=== PATIENT | male | born 1975 | race Caucasian/White ===

== ENCOUNTER → 2016-07-04 | Outpatient (CLI) | payer OTHER ==
[2016-07-04 13:19] LABS: BLOOD UREA NITROGEN 10 MG/DL (7-18); CREATININE FOR GFR 1.16 MG/DL (0.70-1.30); GLOMERULAR FILTRATION RATE > 60.0 (>60)
== END | disposition home or self-care (01) ==
LOC: M LAB 11:18
PROVIDERS: ATTEND Internal Medicine Gastroenterology
DX: R10.33 Periumbilical pain (principal)

== ENCOUNTER → 2016-07-05 | Outpatient (CLI) | payer OTHER ==
[~2016-07-05] MED LIST: GASTROGRAFIN SOLUTION 30ML (Q9963) As Ordered ONE; ISOVUE-370 76% 100ML VIAL (Q9967) As Ordered ONE
--- NOTE | 2016-07-05 11:28 | REP ---
CT abdomen pelvis with IV and oral contrast 07/05/2016 Indication right upper quadrant epigastric pain Comparison to liver ultrasound 09/04/2015 performed at [facility] Technique: After drinking two cups of oral contrast, each containing 10 ml gastrographin in 290 ml water, 3 mm spiral axial images were performed through the abdomen. Following IV contrast administration of 100 mL Isovue 370 mg/ml , 3 mm spiral axial sections performed through abdomen and pelvis. Findings: Lung bases are clear bilaterally. There is mild diffuse fatty infiltration of liver with a small amount of fatty sparing within the left lobe of liver and adjacent to gallbladder fossa. Spleen, pancreas are unremarkable. Tiny sludge ball versus noncalcified stone is suggested in the gallbladder neck. Adrenal glands kidneys are unremarkable. There is no hydronephrosis or obstructing ureteral calculi bilaterally. Stomach is unremarkable. There are moderate to slightly thickened jejunal loops, likely contributed to by spasm/ under distension. The small bowel is without obstruction. The appendix is normal. Abdominal aorta is of normal course and caliber Bladder is normal prostate is not enlarged. There are few scattered colonic diverticula and moderate retained colonic stool. 9 mm umbilical hernia seen containing tiny amount of omental fat only There has been previous posterior fusion of L 5 and S1 with bilateral posterior pedicular screws and vertical stabilization rods at L5 and S1. There is no visualized spondylolisthesis. Disc cage also noted at L5 -S1. There is no free air or ascites. Impression: Mild diffuse fatty infiltration of liver. Small areas of focal fatty sparing noted adjacent to gallbladder fossa. Tiny sludge ball versus noncalcified stones suggested in the gallbladder neck of 6.5 mm diameter. May consider gallbladder ultrasound. Unremarkable appendix Moderate diffuse retained colonic stool. Few mildly thickened loops of jejunum which may be contributed to by under distension/spasm. Previous posterior fusion with disc cage at L5-S1. No spondylolisthesis Signed by Hallie Worley MD 07/05/2016 11:20 A
== END | disposition home or self-care (01) ==
LOC: M RAD 09:01
PROVIDERS: ATTEND Internal Medicine Gastroenterology
DX: R10.11 Right upper quadrant pain (principal); R10.13 Epigastric pain; K76.0 Fatty (change of) liver, not elsewhere classified; K59.00 Constipation, unspecified
CPT/HCPCS: 74178; Q9963; Q9967

== ENCOUNTER 2020-03-16 06:33 | Emergency (ER) | payer OTHER, SELFPAY ==
[~2020-03-16] VITALS: Ht 182.9 cm; Wt 114.1 kg
[2020-03-16 07:24] VITALS: BP 145/88
== END 2020-03-16 07:24 | disposition home or self-care (01) ==
LOC: M ED 06:33
DX: H61.21 Impacted cerumen, right ear (principal)

== ENCOUNTER → 2021-06-09 | Outpatient (REF) | payer BC ==
[2021-06-09 18:31] LABS: CREATININE, URINE 56.2 MG/DL; MAU/CREAT RATIO 30.2 MCG/MG (0.0-30.0)
== END ==
LOC: M LAB REF 17:01
PROVIDERS: ATTEND Internal Medicine Endocrinology, Diabetes & Metabolism
DX: E11.65 Type 2 diabetes mellitus with hyperglycemia (principal)